=== PATIENT | female | born 1945 | race Caucasian/White ===

== ENCOUNTER 2017-01-15 20:01 | Inpatient (IN) | payer MEDICARE ==
[~2017-01-15 20:01] MED LIST: AMLO5TAB22 PO; LEVO100T4 PO; METF-324 PO; MIRA1TAB PO; VENL150T14 PO
[2017-01-15 20:03] VITALS: BP 152/68; PULSE 97; RESP 16; TEMP 98.8; O2SAT 94
[2017-01-15] MEDS ORDERED: CLINDAMYCIN INJ 600 MG in SODIUM CHLORIDE 0.9% INJ 100 ML IV ONE (21:00)
[2017-01-15] MEDS ORDERED: MORPHINE SULFATE 4 MG/ML INJ IV PUSH ONE (21:00)
[2017-01-15] MEDS ORDERED: ONDANSETRON HCL 4 MG/2 ML VIAL IV PUSH ONE (21:00)
[2017-01-15 21:02] VITALS: BP 159/71; PULSE 77; RESP 18; O2SAT 93; O2SAT 97
[2017-01-15 21:34] LABS: AUTOMATED NEUTROPHIL # 5.3 TH/MM3 (1.8-7.7); BASOPHIL % 0.5 % (0.0-2.0); EOSINOPHIL # 0.2 TH/MM3 (0-0.4); EOSINOPHIL % 3.1 % (0.0-4.0); HEMATOCRIT 38.4 % (35.0-46.0); HEMO FLAGS DIFF FINAL; LYMPH % 20.6 % (9.0-44.0); LYMPHOCYTE # 1.7 TH/MM3 (1.0-4.8); MEAN CELL VOLUME 90.9 FL (80.0-100.0); MONO % 9.8 % (0.0-8.0); PLATELET COUNT 125 TH/MM3 (150-450); RED BLOOD COUNT 4.23 MIL/MM3 (4.00-5.30); RED CELL DISTRIBUTION WIDTH 15.3 % (11.6-17.2)
--- NOTE | 2017-01-15 21:35 | PD ---
HPI Chief Complaint: ENT Complaint Time Seen by Provider: 20:47 Travel History International Travel<30 days: No Contact w/Intl Traveler<30days: No Traveled to known affect area: No History of Present Illness HPI 71-year-old female that presents to the ED for evaluation of swelling on the right side of the neck with pain. Per patient she's had this since Wednesday. Per patient she went to see an urgent care and she was diagnosed with cellulitis. She was given antibiotics with minimal relief. Per patient she follow up again today and she had a CT ordered but she has not results. Per patient her pain and swelling continues to worsen. Per patient she had a CT to make sure she doesn't have any carotid artery issue. She states that the pain started all of a sudden. She denies any history of cancer or of injury to the area. She denies any dizziness or lightheadedness. Per patient she cannot open her mouth secondary to severe pain. She denies any fevers chills or sweats. She states that the pain currently 7 out of 10. Gets worse with touch as well as with opening the mouth. She states compliance with the medications given to her. She was given Lortab for pain with some relief but not enough to get rid of the pain completely. Pain gets worse when she opens her mouth. PFSH Past Medical History Cancer: No Cardiovascular Problems: Yes Diabetes: Yes Patient Takes Glucophage: Yes Endocrine: No Gastrointestinal Disorders: Yes (ACID) Genitourinary: No Hepatitis: No Hiatal Hernia: No Hypertension: Yes Immune Disorder: No Musculoskeletal: No Neurologic: No Psychiatric: No Reproductive: No Respiratory: No Immunizations Current: No Thyroid Disease: Yes (HYPO) ?: Not : 4 Para: 3 Miscarriage: 1 Past Surgical History Abdominal Surgery: Yes (GALLBLADDER) AICD: No Cardiac Surgery: Yes (STENT) Cholecystectomy: Yes Ear Surgery: No Endocrine Surgery: No Eye Surgery: No Genitourinary Surgery: No Gynecologic Surgery: No Joint Replacement: No Oral Surgery: No Pacemaker: No Thoracic Surgery: No Other Surgery: Yes Social History Alcohol Use: No Tobacco Use: No Substance Use: No Allergies-Medications (Allergen,Severity, Reaction): Coded Allergies: codeine (Unverified Allergy, Severe, Nausea/Vomiting, 01/15/17) atorvastatin (Unverified Allergy, Unknown, 01/15/17) pravastatin (Unverified Allergy, Unknown, 01/15/17) simvastatin (Unverified Allergy, Unknown, 01/15/17) Reported Meds & Prescriptions Reported Meds & Active Scripts Active Reported Amlodipine Besylate 5 mg (Amlodipine Besylate) 5 Mg Tab 5 Mg PO DAILY Levothyroxine 100 mcg (Levothyroxine Sodium) 100 Mcg Tab 100 Mcg PO DAILY Mirapex (Pramipexole Dihydrochloride) 1 Mg Tab 1 Mg PO DAILY Venlafaxine Hcl Er (Venlafaxine HCl) 150 Mg Tab 150 Mg PO DAILY Metformin HCl ER (Metformin HCl) 1,000 Mg Tab 1,000 Mg PO BIDPC Review of Systems Except as stated in HPI: all other systems reviewed are Neg Physical Exam Narrative GENERAL: SKIN: Warm and dry. HEAD: Atraumatic. Normocephalic. EYES: Pupils equal and round. No scleral icterus. No injection or drainage. ENT: No nasal bleeding or discharge. Mucous membranes pink and moist. Tongue is midline. No uvula deviation. Patient has an area of erythema and swelling noted on the right side of the face just below the ear. There is swelling and tender. Also some swelling on the TMJ area. Erythematous. It radiates down the neck following the musculature. No obvious brui or abscess or purulence noted. NECK: Trachea midline. No JVD. CARDIOVASCULAR: Regular rate and rhythm. No murmurs, S3, S4. RESPIRATORY: No accessory muscle use. Clear to auscultation. Breath sounds equal bilaterally. GASTROINTESTINAL: Abdomen soft, non-tender, nondistended. Hepatic and splenic margins not palpable. MUSCULOSKELETAL: Extremities without clubbing, cyanosis, or edema. No obvious deformities. Full range of motion of the upper and lower extremities bilaterally. 2+ pulses bilaterally. NEUROLOGICAL: Awake and alert. No obvious cranial nerve deficits. Motor grossly within normal limits. Five out of 5 muscle strength in the arms and legs. Normal speech. PSYCHIATRIC: Appropriate mood and affect; insight and judgment normal. Data Data Last Documented VS Vital Signs Date Time Temp Pulse Resp B/P (MAP) Pulse Ox O2 Delivery O2 Flow Rate FiO2 01/15/17 21:02 77 18 159/71 (100) 97 Room Air 01/15/17 20:03 98.8 Orders Orders Complete Blood Count With Diff (01/15/17 20:53) Basic Metabolic Panel (Bmp) (01/15/17 20:53) Thyroid Stimulating Hormone (01/15/17 20:53) Chest, Single Ap (01/15/17 20:53) Iv Access Insert/Monitor (01/15/17 20:53) Ct Soft Tiss Neck W Iv Cont (01/15/17 ) Morphine Inj (Morphine Inj) (01/15/17 21:00) Ondansetron Inj (Zofran Inj) (01/15/17 21:00) Clindamycin Inj (Cleocin Inj) (01/15/17 21:00) C-Reactive Protein (Crp) (01/15/17 21:10) Labs Laboratory Tests Test 01/15/17 21:10 White Blood Count 8.0 TH/MM3 Red Blood Count 4.23 MIL/MM3 Hemoglobin 12.7 GM/DL Hematocrit 38.4 % Mean Corpuscular Volume 90.9 FL Mean Corpuscular Hemoglobin 30.0 PG Mean Corpuscular Hemoglobin Concent 33.0 % Red Cell Distribution Width 15.3 % Platelet Count 125 TH/MM3 Mean Platelet Volume 9.4 FL Neutrophils (%) (Auto) 66.0 % Lymphocytes (%) (Auto) 20.6 % Monocytes (%) (Auto) 9.8 % Eosinophils (%) (Auto) 3.1 % Basophils (%) (Auto) 0.5 % Neutrophils # (Auto) 5.3 TH/MM3 Lymphocytes # (Auto) 1.7 TH/MM3 Monocytes # (Auto) 0.8 TH/MM3 Eosinophils # (Auto) 0.2 TH/MM3 Basophils # (Auto) 0.0 TH/MM3 CBC Comment DIFF FINAL Differential Comment Blood Urea Nitrogen 12 MG/DL Creatinine 0.86 MG/DL Random Glucose 244 MG/DL Calcium Level 8.4 MG/DL Sodium Level 137 MEQ/L Potassium Level 3.8 MEQ/L Chloride Level 106 MEQ/L Carbon Dioxide Level 24.5 MEQ/L Anion Gap 7 MEQ/L Estimat Glomerular Filtration Rate 65 ML/MIN C-Reactive Protein 5.90 MG/DL Thyroid Stimulating Hormone 3rd Gen 1.880 uIU/ML MDM Medical Decision Making Medical Screen Exam Complete: Yes Emergency Medical Condition: Yes Medical Record Reviewed: Yes Differential Diagnosis Abscesses versus cellulitis versus parotitis versus cellulitis versus ear infection Narrative Course 71-year-old female that presents to the ED for evaluation of right-sided facial swelling and neck pain. Patient was properly examined and was found to have signs and symptoms more consistent with infection at this time. Do not believe this is a carotid dissection. Patient had a CT scan without contrast of the neck that was essentially unremarkable today. This time her recommends CT with contrast to rule out any other etiology more likely infection. Patient was started on IV. Given IV antibiotics and pain medication as labs were ordered. Case signed out to my attending pending imaging and dispo. Javier Jean Baptiste Jan 15, 2017 21:35
[2017-01-15 21:54] LABS: BICARBONATE 24.5 MEQ/L (21.0-32.0); POTASSIUM 3.8 MEQ/L (3.5-5.1)
--- NOTE | 2017-01-15 22:22 | RADRPT ---
EXAM DATE/TIME: 01/15/2017 21:12 [facility] COMPARISON: No previous studies available for comparison. INDICATIONS : Chest discomfort, swelling in neck for 3 days MEDICAL HISTORY : None. SURGICAL HISTORY : Cardiac stent ENCOUNTER: Initial ACUITY: 3 days PAIN SCORE: 0/10 LOCATION: Bilateral chest FINDINGS: A single view of the chest demonstrates the lungs to be symmetrically aerated without evidence of mas s, infiltrate or effusion. The cardiomediastinal contours are unremarkable. Osseous structures are intact. There are 2 small ringlike structure projecting over the EG junction region. Clips are seen i n the right upper quadrant of the abdomen. CONCLUSION: No acute disease. Nic León MD on January 15, 2017 at 22:20 Board Certified Radiologist. This report was verified electronically.
[2017-01-15 22:45] VITALS: BP 143/65; PULSE 75; RESP 18; O2SAT 93
[2017-01-15] MEDS ORDERED: METFORMIN HOLD POST IV CONTRAST SCH (23:23)
[2017-01-15] MEDS ORDERED: IOHEXOL 350 MG/ML 10 ML VIAL (for RAD DIAG) IVCONTRAST ONE (23:25)
[2017-01-15 23:35] VITALS: BP 162/70; PULSE 82; RESP 18; O2SAT 94
--- NOTE | 2017-01-15 23:47 | RADRPT ---
EXAM DATE/TIME: 01/15/2017 23:22 [facility] COMPARISON: No previous studies available for comparison. INDICATIONS : Right neck swelling. IV CONTRAST: 80 cc Omnipaque 350 (iohexol) IV RADIATION DOSE: 17.35 CTDIvol (mGy) MEDICAL HISTORY : Cardiovascular disease. Hypertension. Diabetes mellitus type 2.Renal calculi SURGICAL HISTORY : Cholecystectomy. ENCOUNTER: Subsequent ACUITY: 3 days PAIN SCALE: 5/10 LOCATION: Right neck TECHNIQUE: Volumetric scanning of the neck was performed. Using automated exposure control and adjustment of th e mA and/or kV according to patient size, radiation dose was kept as low as reasonably achievable to obtain optimal diagnostic quality images. DICOM format image data is available electronically for r eview and comparison. FINDINGS: There is some mild soft tissue swelling of the right parotid relative to the left parotid and there i s some questionable low attenuation in the posterior right parotid. There is some stranding of subcut aneous fat in the right neck. Borderline enlarged lymph nodes present in the upper right neck. Otherwise no adenopathy. No airway o bstructing lesions or foreign bodies. No acute bony abnormality. There is degenerative disc disease i n the cervical spine. Lung apices are clear. CONCLUSION: 1. Enlarged right parotid gland relative to left with questionable heterogeneous low attenuation area in the posterior right parotid. There is surrounding stranding of subcutaneous fat. Primary differen tial diagnosis is a right-sided parotitis and mild cellulitis in the right neck. No drainable fluid c ollections. Dameon Reddy MD on January 15, 2017 at 23:39 Board Certified Radiologist. This report was verified electronically.
[2017-01-16] VITALS (10 sets, daily range): BP systolic 128–150; BP diastolic 61–88; PULSE 74–98; RESP 17–20; TEMP 97.2–99.5; O2SAT 92–99
--- NOTE | 2017-01-16 00:05 | PD ---
Physical Exam Date Seen by Provider: Jan 15, 2017 Time Seen by Provider: 23:20 Narrative Accepted in transfer of care Data Data Last Documented VS Vital Signs Date Time Temp Pulse Resp B/P (MAP) Pulse Ox O2 Delivery O2 Flow Rate FiO2 01/15/17 23:35 82 18 162/70 (100) 94 Room Air 01/15/17 20:03 98.8 Orders Orders Complete Blood Count With Diff (01/15/17 20:53) Basic Metabolic Panel (Bmp) (01/15/17 20:53) Thyroid Stimulating Hormone (01/15/17 20:53) Chest, Single Ap (01/15/17 20:53) Iv Access Insert/Monitor (01/15/17 20:53) Ct Soft Tiss Neck W Iv Cont (01/15/17 ) Morphine Inj (Morphine Inj) (01/15/17 21:00) Ondansetron Inj (Zofran Inj) (01/15/17 21:00) Clindamycin Inj (Cleocin Inj) (01/15/17 21:00) C-Reactive Protein (Crp) (01/15/17 21:10) Iohexol 350 Inj (Omnipaque 350 Inj) (01/15/17 23:25) Labs Laboratory Tests Test 01/15/17 21:10 White Blood Count 8.0 TH/MM3 Red Blood Count 4.23 MIL/MM3 Hemoglobin 12.7 GM/DL Hematocrit 38.4 % Mean Corpuscular Volume 90.9 FL Mean Corpuscular Hemoglobin 30.0 PG Mean Corpuscular Hemoglobin Concent 33.0 % Red Cell Distribution Width 15.3 % Platelet Count 125 TH/MM3 Mean Platelet Volume 9.4 FL Neutrophils (%) (Auto) 66.0 % Lymphocytes (%) (Auto) 20.6 % Monocytes (%) (Auto) 9.8 % Eosinophils (%) (Auto) 3.1 % Basophils (%) (Auto) 0.5 % Neutrophils # (Auto) 5.3 TH/MM3 Lymphocytes # (Auto) 1.7 TH/MM3 Monocytes # (Auto) 0.8 TH/MM3 Eosinophils # (Auto) 0.2 TH/MM3 Basophils # (Auto) 0.0 TH/MM3 CBC Comment DIFF FINAL Differential Comment Blood Urea Nitrogen 12 MG/DL Creatinine 0.86 MG/DL Random Glucose 244 MG/DL Calcium Level 8.4 MG/DL Sodium Level 137 MEQ/L Potassium Level 3.8 MEQ/L Chloride Level 106 MEQ/L Carbon Dioxide Level 24.5 MEQ/L Anion Gap 7 MEQ/L Estimat Glomerular Filtration Rate 65 ML/MIN C-Reactive Protein 5.90 MG/DL Thyroid Stimulating Hormone 3rd Gen 1.880 uIU/ML [facility] Medical Record Reviewed: Yes Supervised Visit with [facility]: Yes Interpretation(s) ct soft tissue neck: CONCLUSION: 1. Enlarged right parotid gland relative to left with questionable heterogeneous low attenuation area in the posterior right parotid. There is surrounding stranding of subcutaneous fat. Primary differential diagnosis is a right-sided parotitis and mild cellulitis in the right neck. No drainable fluid collections. Dameon Reddy MD on January 15, 2017 at 23:39 Board Certified Radiologist. This report was verified electronically. Last Impressions Chest X-Ray 01/15/172052 Signed Impressions: Service Date/Time: Sunday, January 15, 2017 21:12 - CONCLUSION: No acute disease. Nic León MD CBC & BMP Diagram 01/15/17 21:10 Calcium Level 8.4 L Vital Signs Date Time Temp Pulse Resp B/P (MAP) Pulse Ox O2 Delivery O2 Flow Rate FiO2 01/15/17 23:35 82 18 162/70 (100) 94 Room Air 01/15/17 22:45 75 18 143/65 (91) 93 Room Air 01/15/17 21:02 77 18 159/71 (100) 97 Room Air 01/15/17 20:03 98.8 97 16 152/68 (96) 94 Room Air Differential Diagnosis accepted in transfer of care Narrative Course accepted in transfer of care A [address] soft tissue neck with contrast identifies parotitis with cellulitis Diagnosis Primary Impression: Acute parotitis Additional Impression: Cellulitis of neck Sandra Lopez MD Jan 16, 2017 00:05
[2017-01-16] MEDS ORDERED: SODIUM CHLORIDE 0.9% FLUSH 10 ML FLUSH IVF PRN (00:15)
[2017-01-16] MEDS ORDERED: LACTULOSE SYRUP 20 GM/30 ML CUP PO PRN (00:30)
[2017-01-16] MEDS ORDERED: BISACODYL 10 MG SUPP RECTAL PRN (00:30)
[2017-01-16] MEDS ORDERED: GLUCAGON 1 MG/ML VIAL OTHER PRN (00:30)
[2017-01-16] MEDS ORDERED: SODIUM CHLORIDE 0.9% FLUSH 10 ML FLUSH IV FLUSH PRN (00:30)
[2017-01-16] MEDS ORDERED: ACETAMINOPHEN 325 MG TAB PO PRN (00:30)
[2017-01-16] MEDS ORDERED: ONDANSETRON HCL 4 MG/2 ML VIAL IVP PRN (00:30)
[2017-01-16] MEDS ORDERED: SENNOSIDES 8.6 MG TAB PO PRN (00:30)
[2017-01-16] MEDS ORDERED: MAGNESIUM HYDROXIDE SUSP 30 ML CUP PO PRN (00:30)
[2017-01-16] MEDS ORDERED: DEXTROSE 50% IN WATER 50 ML VIAL(D50) IV PRN (00:30)
[2017-01-16] MEDS ORDERED: MORPHINE SULFATE 4 MG/ML INJ IV PRN ×2 (00:30)
[2017-01-16] MEDS ORDERED: HYDROmorphone HCL PF 1 MG/ML VIAL IV PUSH PRN (00:45)
[2017-01-16] MEDS: SODIUM CHLOR 0.9% 1000 ML INJ 1,000 ML IV SCH ×3 (00:51→22:40)
--- NOTE | 2017-01-16 00:54 | HHI.HP ---
HPI Service [facility] Hospitalists Primary Care Physician Mary Robert MD Admission Diagnosis parotitis; neck cellulitis; failed outpatient therapy Diagnoses: (1) Acute parotitis Diagnosis: Principal (2) Cellulitis of neck Diagnosis: Principal (3) Failure of outpatient treatment Diagnosis: Principal (4) Thrombocytopenia Diagnosis: Principal (5) Dehydration Diagnosis: Principal (6) HTN (hypertension) Diagnosis: Principal (7) DM (diabetes mellitus) Diagnosis: Principal Travel History International Travel<30 Days: No Contact w/Intl Traveler <30 Da: No Traveled to Known Affected Are: No History of Present Illness This is a 71-year-old female with a PMH of HTN, Hyperlipidemia and GERD who presented to the ER with complaints of right-sided neck pain and swelling. States symptoms began on Wednesday (01/13/17), was unable to get in to see PCP so went to Urgent Care Clinic, given Augmentin po bid and told to return on Wednesday for re-check, states she's been taking as directed. night (01/14) pt presented to ER at due to nausea/vomiting and persistent neck swelling/pain. Was give unknown antibiotic and pain medication and d/c'd home. Called Urgent Care and was instructed to come to [place]. Denies fever, chills. On arrival, BP 152/68, HR 97, O2 sat 94% on RA, Afebrile. WBC normal. Platelets 125, no previous labs for comparison. GFR 65. BS 244. INR 1.2. CXR with no acute findings. CT Neck with a large right parotid gland, surrounding stranding of subcutaneous fat, right-sided parotitis and mild cellulitis of right neck. S/p Clinda IV in ER. Review of Systems Except as stated in HPI: all other systems reviewed are Neg ROS: 14 point review of systems otherwise negative. Past Family Social History Past Medical History PMH: HTN, Hyperlipidemia and GERD Past Surgical History PAST SURGICAL HISTORY: Cholecystectomy, Cardiac Stent Allergies: Coded Allergies: codeine (Unverified Allergy, Severe, Nausea/Vomiting, 01/15/17) atorvastatin (Unverified Allergy, Unknown, 01/15/17) pravastatin (Unverified Allergy, Unknown, 01/15/17) simvastatin (Unverified Allergy, Unknown, 01/15/17) Family History PAST FAMILY HISTORY: Reviewed. No h/o DM or CAD Social History PAST SOCIAL HISTORY: Negative for alcohol, tobacco or drugs. Physical Exam Vital Signs Vital Signs Date Time Temp Pulse Resp B/P (MAP) Pulse Ox O2 Delivery O2 Flow Rate FiO2 01/15/17 23:35 82 18 162/70 (100) 94 Room Air 01/15/17 22:45 75 18 143/65 (91) 93 Room Air 01/15/17 21:02 77 18 159/71 (100) 97 Room Air 01/15/17 20:03 98.8 97 16 152/68 (96) 94 Room Air Physical Exam PE: GENERAL: Very pleasant middle-aged white female in mild distress secondary to pain. at bedside. HEENT: PERRLA, EOMI. No scleral icterus or conjunctival pallor. No lid lag or facial droop. Right neck erythema/cellulitis, no obvious fluctuance. CARDIOVASCULAR: Regular rate and rhythm. No obvious murmurs to auscultation. No chest tenderness to palpation. RESPIRATORY: No obvious rhonchi or wheezing. Clear to auscultation. Breath sounds equal bilaterally. GASTROINTESTINAL: Abdomen soft, non-tender, nondistended. BS normal. MUSCULOSKELETAL: Extremities without clubbing, cyanosis, or edema. No obvious deformities. NEUROLOGICAL: Awake, alert and oriented x4. No focal neurologic deficits. Moving both upper and lower extremities spontaneously. Laboratory Laboratory Tests Test 01/15/17 21:10 White Blood Count 8.0 Red Blood Count 4.23 Hemoglobin 12.7 Hematocrit 38.4 Mean Corpuscular Volume 90.9 Mean Corpuscular Hemoglobin 30.0 Mean Corpuscular Hemoglobin Concent 33.0 Red Cell Distribution Width 15.3 Platelet Count 125 Mean Platelet Volume 9.4 Neutrophils (%) (Auto) 66.0 Lymphocytes (%) (Auto) 20.6 Monocytes (%) (Auto) 9.8 Eosinophils (%) (Auto) 3.1 Basophils (%) (Auto) 0.5 Neutrophils # (Auto) 5.3 Lymphocytes # (Auto) 1.7 Monocytes # (Auto) 0.8 Eosinophils # (Auto) 0.2 Basophils # (Auto) 0.0 CBC Comment DIFF FINAL Differential Comment Blood Urea Nitrogen 12 Creatinine 0.86 Random Glucose 244 Calcium Level 8.4 Sodium Level 137 Potassium Level 3.8 Chloride Level 106 Carbon Dioxide Level 24.5 Anion Gap 7 Estimat Glomerular Filtration Rate 65 C-Reactive Protein 5.90 Thyroid Stimulating Hormone 3rd Gen 1.880 Result Diagram: 01/15/17210901/15/172109 Caprini VTE Risk Assessment Caprini VTE Risk Assessment: No/Low Risk (score <= 1) Caprini Risk Assessment Model Point Value = 1 Point Value = 2 Point Value = 3 Point Value = 5 Age 41-60 Minor surgery BMI > 25 kg/m2 Swollen legs Varicose veins or History of unexplained or recurrent spontaneous Oral contraceptives or hormone replacement Sepsis (< 1 month) Serious lung disease, including pneumonia (< 1 month) Abnormal pulmonary function Acute myocardial infarction Congestive heart failure (< 1 month) History of inflammatory bowel disease Medical patient at bed rest Age 61-74 Arthroscopic surgery Major open surgery (> 45 min) Laparoscopic surgery (> 45 min) Malignancy Confined to bed (> 72 hours) Immobilizing plaster cast Central venous access Age >= 75 History of VTE Family history of VTE Factor V Leiden Prothrombin [id number] Lupus anticoagulant Anticardiolipin antibodies Elevated serum homocysteine Heparin-induced thrombocytopenia Other congenital or acquired thrombophilia Stroke (< 1 month) Elective arthroplasty Hip, pelvis, or leg fracture Acute spinal cord injury (< 1 month) Prophylaxis Regimen Total Risk Factor Score Risk Level Prophylaxis Regimen 0-1 Low Early ambulation 2 Moderate Order ONE of the following: *Sequential Compression Device (SCD) *Heparin 5000 units SQ BID 3-4 Higher Order ONE of the following medications: *Heparin 5000 units SQ TID *Enoxaparin/Lovenox 40 mg SQ daily (WT < 150 kg, CrCl > 30 mL/min) *Enoxaparin/Lovenox 30 mg SQ daily (WT < 150 kg, CrCl > 10-29 mL/min) *Enoxaparin/Lovenox 30 mg SQ BID (WT < 150 kg, CrCl > 30 mL/min) AND/OR *Sequential Compression Device (SCD) 5 or more Highest Order ONE of the following medications: *Heparin 5000 units SQ TID (Preferred with Epidurals) *Enoxaparin/Lovenox 40 mg SQ daily (WT < 150 kg, CrCl > 30 mL/min) *Enoxaparin/Lovenox 30 mg SQ daily (WT < 150 kg, CrCl > 10-29 mL/min) *Enoxaparin/Lovenox 30 mg SQ BID (WT < 150 kg, CrCl > 30 mL/min) AND *Sequential Compression Device (SCD) Assessment and Plan Problem List: (1) Cellulitis of neck ICD Code: L03.221 - Cellulitis of neck Status: Acute (2) Acute parotitis ICD Code: K11.21 - Acute sialoadenitis Status: Acute (3) Failure of outpatient treatment ICD Code: Z78.9 - Other specified health status (4) Dehydration ICD Code: E86.0 - Dehydration (5) Thrombocytopenia ICD Code: D69.6 - Thrombocytopenia, unspecified (6) HTN (hypertension) ICD Code: I10 - Essential (primary) hypertension (7) DM (diabetes mellitus) ICD Code: E11.9 - Type 2 diabetes mellitus without complications Assessment and Plan A/P: 1. Acute Parotitis: Right-sided facial swelling/pain x2 days, afebrile, no leukocytosis. CT Neck w/ right parotitis, images reviewed by me. S/p Clinda IV in ER, will continue w/ IV Abx, analgesics/antiemetics as needed. 2. Neck Cellulitis: Right. CT Neck w/ right-sided neck cellulitis, no abscess noted, images reviewed. Continue w/ IV Abx as above. Optimize pain control. No airway compromise. Diet as tolerated. 3. Failed Outpatient Tx: Seen in Urgent Care 2 days ago, started on Augmentin po, taking medication as prescribed w/ no improvement, seen in ER at last night, s/p IV Abx with minimal improvement. Continue IV Abx. 4. Dehydration: Secondary to decreased PO intake due to above. GFR 65. BUN/ Creatinine normal. IVF for hydration, repeat labs in am. 5. Thrombocytopenia: Platelets 125, no previous labs for comparison. No active bleeding. Will monitor. Repeat labs in am. 6. HTN: BP 140-160's, likely compounded by pain complaints. Resume home meds as tolerated as difficulty swallowing due to pain. Monitor BP. 7. DVT Prophylaxis: SCD/Teds. 8. Social work for d/c planning as needed. 9. Case discussed w/ ER physician at length. Physician Certification 2 Midnight Certification Type: Admission for Inpatient Services Order for Inpatient Services The services are ordered in accordance with Medicare regulations or non- Medicare payer requirements, as applicable. In the case of services not specified as inpatient-only, they are appropriately provided as inpatient services in accordance with the 2-midnight benchmark. Estimated LOS (days): 2 days is the estimated time the patient will need to remain in the hospital, assuming treatment plan goals are met and no additional complications. Post-Hospital Plan: Not yet determined Alexsandra Meraz MD Jan 16, 2017 00:54
[2017-01-16] MEDS: HYDROmorphone HCL PF 1 MG/ML VIAL IV PUSH PRN ×5 (01:26→22:43)
[2017-01-16] MEDS: CLINDAMYCIN INJ 900 MG in SODIUM CHLORIDE 0.9% INJ 100 ML IV SCH ×3 (05:25→22:40)
[2017-01-16] MEDS: INSULIN ASPART SUPPLEMENTAL SCALE SQ SCH ×4 (06:42→22:22)
[2017-01-16] MEDS: DOCUSATE SODIUM 50 MG/SENNA 8.6 MG TAB PO SCH ×2 (09:35→22:16)
--- NOTE | 2017-01-16 15:21 | HHI.PR ---
Subjective Remarks Follow up parotitis/cellulitis. Patient reports significant swelling and pain of the right side of her neck. Not much better. Objective Vitals Vital Signs Date Time Temp Pulse Resp B/P (MAP) Pulse Ox O2 Delivery O2 Flow Rate FiO2 01/16/17 12:29 99.3 88 19 135/61 (85) 95 01/16/17 08:47 95 Nasal Cannula 2.00 01/16/17 08:00 97.2 93 20 138/84 (102) 95 01/16/17 04:00 98.1 82 17 140/68 (92) 95 01/16/17 01:50 98.8 79 18 149/71 (97) 92 01/16/17 01:31 79 18 135/63 (87) 93 Nasal Cannula 2.00 01/16/17 00:51 83 18 150/67 (94) 93 Room Air 01/15/17 23:35 82 18 162/70 (100) 94 Room Air 01/15/17 22:45 75 18 143/65 (91) 93 Room Air 01/15/17 21:02 77 18 159/71 (100) 97 Room Air 01/15/17 20:03 98.8 97 16 152/68 (96) 94 Room Air I/O 01/15/17 01/15/17 01/15/17 01/16/17 01/16/17 01/16/17 07:00 15:00 23:00 07:00 15:00 23:00 Intake Total 208 ml 100 ml 960 ml Balance 208 ml 100 ml 960 ml Intake Oral 100 ml 960 ml IV Total 208 ml # Voids 1 Result Diagram: 01/15/17210901/15/172109 Imaging Last Impressions Chest X-Ray 01/15/172052 Signed Impressions: Service Date/Time: Sunday, January 15, 2017 21:12 - CONCLUSION: No acute disease. Nic León MD Neck CT 01/15/17 0000 Signed Impressions: Service Date/Time: Sunday, January 15, 2017 23:22 - CONCLUSION: 1. Enlarged right parotid gland relative to left with questionable heterogeneous low attenuation area in the posterior right parotid. There is surrounding stranding of subcutaneous fat. Primary differential diagnosis is a right-sided parotitis and mild cellulitis in the right neck. No drainable fluid collections. Dameon Reddy MD Objective Remarks Gen: Elderly female in no acute distress. HEENT: Swelling and erythema along the right lateral jawline. CV: RRR. Lungs: Clear to auscultation. Breathing is nonlabored. Abdomen: Soft, nontender, nondistended. Ext: No lower extremity edema. Procedures None Urinary Catheter: No Vascular Central Line Catheter: No A/P Problem List: (1) Cellulitis of neck ICD Code: L03.221 - Cellulitis of neck Status: Acute (2) Acute parotitis ICD Code: K11.21 - Acute sialoadenitis Status: Acute (3) Failure of outpatient treatment ICD Code: Z78.9 - Other specified health status (4) Dehydration ICD Code: E86.0 - Dehydration (5) Thrombocytopenia ICD Code: D69.6 - Thrombocytopenia, unspecified (6) HTN (hypertension) ICD Code: I10 - Essential (primary) hypertension (7) DM (diabetes mellitus) ICD Code: E11.9 - Type 2 diabetes mellitus without complications Assessment and Plan 1. Acute parotitis, right neck cellulitis: Failed outpatient therapy. Continue IV antibiotics, analgesics. 2. Dehydration: Secondary to decreased oral intake due to above. Continue IV fluids. 3. Thrombocytopenia: Monitor labs. No prior labs for comparison. 4. Hypertension: Likely worsened initially due to pain. Continue home meds. 5. DVT prophylaxis: SCDs/Anthony marx. 6. Diabetes mellitus: Monitor accuchecks and cover with sliding scale insulin. Steve Mullins MD Jan 16, 2017 15:21
[2017-01-16] MEDS: SODIUM CHLORIDE 0.9% FLUSH 10 ML FLUSH IV FLUSH SCH ×4 (17:40→20:29)
[2017-01-17] VITALS (7 sets, daily range): BP systolic 113–151; BP diastolic 56–80; PULSE 70–95; RESP 17–21; TEMP 96.1–99.1; O2SAT 92–97
[2017-01-17] MEDS: CLINDAMYCIN INJ 900 MG in SODIUM CHLORIDE 0.9% INJ 100 ML IV SCH ×3 (05:37→20:11)
[2017-01-17] MEDS: HYDROmorphone HCL PF 1 MG/ML VIAL IV PUSH PRN ×2 (05:44→12:29)
[2017-01-17] MEDS: INSULIN ASPART SUPPLEMENTAL SCALE SQ SCH ×4 (05:46→20:14)
[2017-01-17 08:32] LABS: AUTOMATED NEUTROPHIL # 2.7 TH/MM3 (1.8-7.7); BASOPHIL % 0.6 % (0.0-2.0); EOSINOPHIL # 0.2 TH/MM3 (0-0.4); HEMATOCRIT 32.7 % (35.0-46.0); HEMO FLAGS DIFF FINAL; LYMPH % 27.1 % (9.0-44.0); LYMPHOCYTE # 1.3 TH/MM3 (1.0-4.8); MEAN CELL VOLUME 90.6 FL (80.0-100.0); MEAN CORPUSCULAR HEMOGLOBIN 31.2 PG (27.0-34.0); MEAN CORPUSCULAR HGB CONC 34.4 % (32.0-36.0); NEUT % 55.3 % (16.0-70.0); PLATELET COUNT 117 TH/MM3 (150-450); RED BLOOD COUNT 3.61 MIL/MM3 (4.00-5.30); RED CELL DISTRIBUTION WIDTH 15.1 % (11.6-17.2); WHITE BLOOD COUNT 4.9 TH/MM3 (4.0-11.0)
[2017-01-17 08:59] LABS: ALT (GPT) 20 U/L (10-53); ANION GAP 8 MEQ/L (5-15); AST (GOT) 22 U/L (15-37); BICARBONATE 23.9 MEQ/L (21.0-32.0); BLOOD UREA NITROGEN 6 MG/DL (7-18); CHLORIDE 108 MEQ/L (98-107); GLOMERULAR FILTRATION RATE 94 ML/MIN (>89); POTASSIUM 3.5 MEQ/L (3.5-5.1); SODIUM (NA) 140 MEQ/L (136-145)
[2017-01-17] MEDS: DOCUSATE SODIUM 50 MG/SENNA 8.6 MG TAB PO SCH ×2 (09:00→20:11)
[2017-01-17] MEDS: SODIUM CHLORIDE 0.9% FLUSH 10 ML FLUSH IV FLUSH SCH ×4 (09:00→20:07)
[2017-01-17 09:01] LABS: ALKALINE PHOSPHATASE 66 U/L (45-117)
--- NOTE | 2017-01-17 09:11 | HHI.PR ---
Subjective Remarks Follow up parotitis, cellulitis. Still quite painful. Patient reports pain with chewing, but denies dyspnea or difficulty swallowing. Objective Vitals Vital Signs Date Time Temp Pulse Resp B/P (MAP) Pulse Ox O2 Delivery O2 Flow Rate FiO2 01/17/17 08:58 97.0 73 20 113/56 (75) 95 01/17/17 04:00 96.1 83 17 148/67 (94) 95 01/17/17 00:00 99.1 95 18 125/80 (95) 92 01/16/17 22:48 96 Nasal Cannula 2.00 01/16/17 20:00 99.5 98 18 139/88 (105) 93 01/16/17 16:35 99.5 90 19 140/63 (88) 94 01/16/17 12:29 99.3 88 19 135/61 (85) 95 I/O 01/16/17 01/16/17 01/16/17 01/17/17 01/17/17 01/17/17 07:00 15:00 23:00 07:00 15:00 23:00 Intake Total 100 ml 960 ml Balance 100 ml 960 ml Intake Oral 100 ml 960 ml # Voids 1 3 Result Diagram: 01/17/17 0749 01/17/17 0749 Imaging Last Impressions Chest X-Ray 01/15/172052 Signed Impressions: Service Date/Time: Sunday, January 15, 2017 21:12 - CONCLUSION: No acute disease. Nic León MD Neck CT 01/15/17 0000 Signed Impressions: Service Date/Time: Sunday, January 15, 2017 23:22 - CONCLUSION: 1. Enlarged right parotid gland relative to left with questionable heterogeneous low attenuation area in the posterior right parotid. There is surrounding stranding of subcutaneous fat. Primary differential diagnosis is a right-sided parotitis and mild cellulitis in the right neck. No drainable fluid collections. Dameon Reddy MD Objective Remarks Gen: Elderly female in no acute distress. HEENT: Swelling along the right lateral jawline. CV: RRR. Lungs: Clear to auscultation. Breathing is nonlabored. Abdomen: Soft, nontender, nondistended. Ext: No lower extremity edema. Procedures None Urinary Catheter: No Vascular Central Line Catheter: No A/P Problem List: (1) Cellulitis of neck ICD Code: L03.221 - Cellulitis of neck Status: Acute (2) Acute parotitis ICD Code: K11.21 - Acute sialoadenitis Status: Acute (3) Failure of outpatient treatment ICD Code: Z78.9 - Other specified health status (4) Dehydration ICD Code: E86.0 - Dehydration (5) Thrombocytopenia ICD Code: D69.6 - Thrombocytopenia, unspecified (6) HTN (hypertension) ICD Code: I10 - Essential (primary) hypertension (7) DM (diabetes mellitus) ICD Code: E11.9 - Type 2 diabetes mellitus without complications Assessment and Plan 1. Acute parotitis, right neck cellulitis: Failed outpatient therapy. Continue IV antibiotics, analgesics. Consult ENT. 2. Dehydration: Secondary to decreased oral intake due to above. Continue IV fluids. 3. Thrombocytopenia: Monitor labs. No prior labs for comparison. No apparent bleeding. 4. Hypertension: Likely worsened initially due to pain. Continue home meds. 5. DVT prophylaxis: SCDs/Anthony hose. 6. Diabetes mellitus: Monitor accuchecks and cover with sliding scale insulin. Discharge Planning Plan for discharge home on oral antibiotics when cleared by ENT. Steve Mullins MD Jan 17, 2017 09:11
[2017-01-17] MEDS: SODIUM CHLOR 0.9% 1000 ML INJ 1,000 ML IV SCH ×2 (09:39→17:38)
[2017-01-17] MEDS ORDERED: PNEUMOCOCCAL POLYVALENT INJ 25 MCG/0.5 ML SYR IM ONE (10:00)
[2017-01-18 01:17] VITALS: BP 134/62; PULSE 75; RESP 18; TEMP 98.1; O2SAT 96
[2017-01-18] MEDS: CLINDAMYCIN INJ 900 MG in SODIUM CHLORIDE 0.9% INJ 100 ML IV SCH (04:10)
[2017-01-18] MEDS: INSULIN ASPART SUPPLEMENTAL SCALE SQ SCH ×2 (05:45→11:00)
[2017-01-18 06:49] VITALS: BP 137/64; PULSE 70; RESP 18; TEMP 98.4; O2SAT 98
[2017-01-18 08:11] VITALS: O2SAT 93
[2017-01-18 08:20] VITALS: BP 161/70; PULSE 69; RESP 20; TEMP 96.8; O2SAT 98
[2017-01-18] MEDS: DOCUSATE SODIUM 50 MG/SENNA 8.6 MG TAB PO SCH (08:37)
[2017-01-18] MEDS: SODIUM CHLORIDE 0.9% FLUSH 10 ML FLUSH IV FLUSH SCH ×2 (08:38)
[2017-01-18] MEDS: SODIUM CHLOR 0.9% 1000 ML INJ 1,000 ML IV SCH (08:38)
--- NOTE | 2017-01-18 09:59 | MB ---
cc: RUBENS FAGAN MD DATE OF CONSULTATION: 01/18/2017 CHIEF COMPLAINT Right facial and neck swelling. HISTORY OF PRESENT ILLNESS This is a 71-year-old female who presented to the emergency room complaining of right-sided neck pain and swelling. Apparently the symptoms began Wednesday the . She eventually went to an urgent care clinic, prescribed Augmentin, however, symptoms subsequently worsened. She continued to have significant pain and swelling of the right side of her face and neck, subsequently reporting to the emergency room. She was diagnosed with right-sided parotitis and started on intravenous IV antibiotics. The patient reports to me this morning her symptoms have significantly improved and she is feeling much better. PAST MEDICAL HISTORY Past medical history significant for: 1. Hypertension. 2. Hyperlipidemia. 3. Gastroesophageal reflux disease. PAST SURGICAL HISTORY Significant her cardiac stent as well as cholecystectomy. ALLERGIES CODEINE, ALL STATINS. FAMILY HISTORY Nonsignificant to case. SOCIAL HISTORY Negative for alcohol, tobacco or drugs. PHYSICAL EXAMINATION GENERAL: The patient is alert and oriented x3, in no acute distress. VITAL SIGNS: Afebrile. Vital signs stable. HEENT: Exam reveals a right-sided parotid firmness with some mild tenderness. She reports it is significantly improved. The neck is nonfluctuant, there is no lymphadenopathy identified. There is no purulence expressed through the submandibular duct intra-orally. LUNGS: Clear to auscultation. HEART: Regular rate and rhythm. ASSESSMENT/PLAN Patient with improving right acute parotitis. Recommend 10-day course of p.o. clindamycin as well as hourly sialogogues and warm compresses. She can follow up with me in my office in 2 weeks. Thank you for this consultation. Rubens Fagan AT/TLL /9:25 AM /9:44 AM
[2017-01-18] MEDS ORDERED: CLIN1CAP6 PO (10:04)
--- NOTE | 2017-01-18 10:05 | HHI.DCPOC ---
Discharge Care Plan Diagnosis: (1) Failure of outpatient treatment (2) DM (diabetes mellitus) (3) HTN (hypertension) (4) Acute parotitis (5) Dehydration (6) Cellulitis of neck (7) Thrombocytopenia Goals to Promote Your Health * To prevent worsening of your condition and complications * To maintain your health at the optimal level Directions to Meet Your Goals Take your medications as prescribed Follow your dietary instruction Follow activity as directed Keep your appointments as scheduled Take your immunizations and boosters as scheduled If your symptoms worsen call your PCP, if no PCP go to Urgent Care Center or Emergency Room Smoking is Dangerous to Your Health. Avoid second hand smoke Call the 24-hour hour crisis hotline for domestic abuse at Steve Mullins MD Jan 18, 2017 10:05
--- NOTE | 2017-01-18 10:13 | HHI.DS ---
Discharge Summary Admission Date Jan 16, 2017 at 00:10 Discharge Date: Jan 18, 2017 Admitting Diagnosis parotitis; neck cellulitis; failed outpatient therapy (1) Cellulitis of neck ICD Code: L03.221 - Cellulitis of neck Status: Acute (2) Acute parotitis ICD Code: K11.21 - Acute sialoadenitis Status: Acute (3) Failure of outpatient treatment ICD Code: Z78.9 - Other specified health status (4) Dehydration ICD Code: E86.0 - Dehydration (5) Thrombocytopenia ICD Code: D69.6 - Thrombocytopenia, unspecified (6) HTN (hypertension) ICD Code: I10 - Essential (primary) hypertension (7) DM (diabetes mellitus) ICD Code: E11.9 - Type 2 diabetes mellitus without complications Procedures None Brief History - From Admission This is a 71-year-old female with a PMH of HTN, Hyperlipidemia and GERD who presented to the ER with complaints of right-sided neck pain and swelling. States symptoms began on Wednesday (01/13/17), was unable to get in to see PCP so went to Urgent Care Clinic, given Augmentin po bid and told to return on Wednesday for re-check, states she's been taking as directed. night (01/14) pt presented to ER at due to nausea/vomiting and persistent neck swelling/pain. Was give unknown antibiotic and pain medication and d/c'd home. Called Urgent Care and was instructed to come to [place]. Denies fever, chills. On arrival, BP 152/68, HR 97, O2 sat 94% on RA, Afebrile. WBC normal. Platelets 125, no previous labs for comparison. GFR 65. BS 244. INR 1.2. CXR with no acute findings. CT Neck with a large right parotid gland, surrounding stranding of subcutaneous fat, right-sided parotitis and mild cellulitis of right neck. S/p Clinda IV in ER. CBC/BMP: 01/17/17 0749 01/17/17 0749 Significant Findings Laboratory Tests Test 01/15/17 21:10 01/17/17 07:49 Platelet Count 125 TH/MM3 (150-450) 117 TH/MM3 (150-450) Monocytes (%) (Auto) 9.8 % (0.0-8.0) 12.0 % (0.0-8.0) Random Glucose 244 MG/DL (74-106) 138 MG/DL (74-106) Calcium Level 8.4 MG/DL (8.5-10.1) 7.6 MG/DL (8.5-10.1) Estimat Glomerular Filtration Rate 65 ML/MIN (>89) C-Reactive Protein 5.90 MG/DL (0.00-0.30) Red Blood Count 3.61 MIL/MM3 (4.00-5.30) Hemoglobin 11.3 GM/DL (11.6-15.3) Hematocrit 32.7 % (35.0-46.0) Eosinophils (%) (Auto) 5.0 % (0.0-4.0) Blood Urea Nitrogen 6 MG/DL (7-18) Total Protein 6.3 GM/DL (6.4-8.2) Albumin 2.6 GM/DL (3.4-5.0) Chloride Level 108 MEQ/L (98-107) Imaging Last Impressions Chest X-Ray 01/15/172052 Signed Impressions: Service Date/Time: Sunday, January 15, 2017 21:12 - CONCLUSION: No acute disease. Nic León MD Neck CT 01/15/17 0000 Signed Impressions: Service Date/Time: Sunday, January 15, 2017 23:22 - CONCLUSION: 1. Enlarged right parotid gland relative to left with questionable heterogeneous low attenuation area in the posterior right parotid. There is surrounding stranding of subcutaneous fat. Primary differential diagnosis is a right-sided parotitis and mild cellulitis in the right neck. No drainable fluid collections. Dameon Reddy MD PE at Discharge Gen: Elderly female in no acute distress. HEENT: Swelling along the right lateral jawline. CV: RRR. Lungs: Clear to auscultation. Breathing is nonlabored. Abdomen: Soft, nontender, nondistended. Ext: No lower extremity edema. Pt update on day of discharge The patient states that she feels much better today. Pain has resolved. She wants to go home. ENT evaluated the patient today and she reports that he cleared her for discharge and advised outpatient follow up. ENT documentation not available at this time. Hospital Course The patient was admitted for management of parotitis and neck cellulitis, failed outpatient therapy. She was continued on antibiotics. Her symptoms improved. ENT was consulted and advised outpatient follow up. She was felt to be stable for discharge home. Pt Condition on Discharge: Stable Discharge Disposition: Discharge Home Discharge Time: > 30 minutes Discharge Instructions DIET: Follow Instructions for: As Tolerated, No Restrictions Activities you can perform: Regular-No Restrictions Follow up Referrals: Ear Nose Throat - 2 Weeks with Rubens West MD PCP Follow-up - 1 Week New Medications: Clindamycin (Clindamycin) 300 Mg Cap 600 MG PO Q8H for Infection, #21 CAP 0 Refills Lactobacillus Acidophilus (Lactobacillus Acidophilus) 1 Pkt 1 PKT PO TID for Nutritional Supplement, #30 PKT 0 Refills Continued Medications: Amlodipine Besylate 5 mg (Amlodipine Besylate 5 mg) 5 Mg Tab 5 MG PO DAILY, TAB Levothyroxine Sodium (Levothyroxine 100 mcg) 100 Mcg Tab 100 MCG PO DAILY, TAB Metformin ER 24 HR (Metformin ER 24 HR) 1,000 Mg Tab 1000 MG PO BIDPC, TAB Pramipexole Dihydrochloride (Mirapex) 1 Mg Tab 1 MG PO DAILY, TAB Venlafaxine Hcl (Venlafaxine Hcl Er) 150 Mg Tab 150 MG PO DAILY, TAB Steve Mullins MD Jan 18, 2017 10:13
[2017-01-18] MEDS ORDERED: LACTPOW68 PO (10:14)
== END 2017-01-18 11:33 | disposition home or self-care (01) | DRG 155 ==
LOC: NEPC 20:01 → NEDA 01-16 00:10 → HOCB 01-16 01:55
PROVIDERS: ADMIT Family Medicine; ATTEND Family Medicine
DX: K11.21 Acute sialoadenitis (principal); L03.221 Cellulitis of neck; D69.6 Thrombocytopenia, unspecified; R13.10 Dysphagia, unspecified; E86.0 Dehydration; I10 Essential (primary) hypertension; E78.5 Hyperlipidemia, unspecified; K21.9 Gastro-esophageal reflux disease without esophagitis; E11.9 Type 2 diabetes mellitus without complications; Z95.5 Presence of coronary angioplasty implant and graft
CPT/HCPCS: 70491; 71010; 80048; 80053; 82948; 84443; 85025; 86140; 96365; 96375; J1170; J1815; J2270; J2405; J7030; Q9967

== ENCOUNTER 2017-06-07 15:55 | Observation (INO) | payer MEDICARE ==
[2017-06-07 17:46] LABS: AUTOMATED NEUTROPHIL # 1.6 TH/MM3 (1.8-7.7); BASOPHIL % 1.3 % (0.0-2.0); EOSINOPHIL # 0.3 TH/MM3 (0-0.4); EOSINOPHIL % 7.4 % (0.0-4.0); HEMATOCRIT 36.2 % (35.0-46.0); HEMO FLAGS DIFF FINAL; HEMOGLOBIN 12.4 GM/DL (11.6-15.3); LYMPH % 36.3 % (9.0-44.0); LYMPHOCYTE # 1.4 TH/MM3 (1.0-4.8); MEAN CELL VOLUME 88.8 FL (80.0-100.0); MEAN CORPUSCULAR HEMOGLOBIN 30.4 PG (27.0-34.0); MEAN CORPUSCULAR HGB CONC 34.2 % (32.0-36.0); MONO % 12.7 % (0.0-8.0); MONOCYTE # 0.5 TH/MM3 (0-0.9); NEUT % 42.3 % (16.0-70.0); PLATELET COUNT 117 TH/MM3 (150-450); RED BLOOD COUNT 4.08 MIL/MM3 (4.00-5.30); RED CELL DISTRIBUTION WIDTH 14.8 % (11.6-17.2); WHITE BLOOD COUNT 3.9 TH/MM3 (4.0-11.0)
[2017-06-07 18:03] LABS: ALBUMIN 3.7 GM/DL (3.4-5.0); ANION GAP 8 MEQ/L (5-15); APTT (PATIENT) 25.7 SEC (24.3-30.1); AST (GOT) 27 U/L (15-37); BLOOD UREA NITROGEN 9 MG/DL (7-18); CHLORIDE 104 MEQ/L (98-107); CREATININE 0.87 MG/DL (0.50-1.00); GLOMERULAR FILTRATION RATE 64 ML/MIN (>89); GLUCOSE,RANDOM 269 MG/DL (74-106); INTERNATIONAL NORMALIZED RATIO 1.2 RATIO; POTASSIUM 3.8 MEQ/L (3.5-5.1); PROTHROMBIN TIME - PATIENT 11.9 SEC (9.8-11.6); SODIUM (NA) 137 MEQ/L (136-145)
[2017-06-07 18:04] LABS: ALT (GPT) 26 U/L (10-53)
[2017-06-07 18:08] LABS: ALKALINE PHOSPHATASE 68 U/L (45-117); CREATINE KINASE 118 U/L (26-192); TOTAL BILIRUBIN ADULT 0.9 MG/DL (0.2-1.0); TOTAL PROTEIN 8.1 GM/DL (6.4-8.2); TROPONIN I LESS THAN 0.02 NG/ML (0.02-0.05)
[2017-06-07 18:19] LABS: CKMB 0.6 NG/ML (0.5-3.6)
[2017-06-07] MEDS: ASPIRIN 325 MG TAB PO (18:20)
[2017-06-07] MEDS ORDERED: NITROGLYCERIN 0.4 MG SL 25 TABS/BTL SL (19:30)
[2017-06-07] MEDS ORDERED: ACETAMINOPHEN 500 MG CPLT PO (19:30)
[2017-06-07] MEDS ORDERED: SODIUM CHLORIDE 0.9% FLUSH 10 ML FLUSH IV FLUSH ×2 (19:30→21:00)
[2017-06-07] MEDS ORDERED: ONDANSETRON HCL 4 MG/2 ML VIAL IV PUSH (19:30)
[2017-06-07 20:32] LABS: CREATINE KINASE 144 U/L (26-192); TROPONIN I LESS THAN 0.02 NG/ML (0.02-0.05)
[2017-06-07 20:45] LABS: CKMB 0.6 NG/ML (0.5-3.6)
[2017-06-07 23:54] LABS: CREATINE KINASE 99 U/L (26-192); TROPONIN I LESS THAN 0.02 NG/ML (0.02-0.05)
[2017-06-08] MEDS ORDERED: ACETAMINOPHEN 500 MG CPLT PO (07:15)
[2017-06-08] MEDS ORDERED: SODIUM CHLORIDE 0.9% FLUSH 10 ML FLUSH IV FLUSH (07:15)
[2017-06-08] MEDS ORDERED: ONDANSETRON HCL 4 MG/2 ML VIAL IV PUSH (07:15)
[2017-06-08] MEDS: VENLAFAXINE HCL XR 75 MG CAP PO (08:59)
[2017-06-08] MEDS: ASPIRIN 325 MG TAB PO (09:00)
[2017-06-08] MEDS: SODIUM CHLORIDE 0.9% FLUSH 10 ML FLUSH IV FLUSH (09:00)
[2017-06-08] MEDS: LEVOTHYROXINE SODIUM 112 MCG TAB PO (09:00)
[2017-06-08] MEDS: amLODIPine BESYLATE 5 MG TAB PO (09:00)
[2017-06-08] MEDS: REGADENOSON INJ 0.4 MG/5 ML SYR (09:40)
== END 2017-06-08 14:55 | disposition home or self-care (01) ==
LOC: NEPC 15:55 → NEDA 19:27 → NEPFCDU 20:07
DX: R07.9 Chest pain, unspecified (principal); I25.10 Atherosclerotic heart disease of native coronary artery without angina pectoris; I10 Essential (primary) hypertension; E11.9 Type 2 diabetes mellitus without complications; E03.9 Hypothyroidism, unspecified; R94.31 Abnormal electrocardiogram [ECG] [EKG]; E78.5 Hyperlipidemia, unspecified; R61 Generalized hyperhidrosis; M79.602 Pain in left arm; R00.2 Palpitations; R06.02 Shortness of breath; Z82.49 Family history of ischemic heart disease and other diseases of the circulatory system; Z95.5 Presence of coronary angioplasty implant and graft; Z87.442 Personal history of urinary calculi
CPT/HCPCS: 71046; 78452; 80053; 82550; 82552; 83735; 84484; 85025; 85610; 85730; 93005; 93017; 99285